=== PATIENT | male | born 1985 | race African-American/Black ===

== ENCOUNTER 2022-03-19 23:01 | Emergency (ER) | payer BC ==
[~2022-03-19] VITALS: Ht 185.4 cm; Wt 113.4 kg
--- NOTE | 2022-03-19 23:29 | NUR ---
Dr. hill at bedside for mse pt came to er c/o hiccups.
[2022-03-19] MEDS ORDERED: LIDOCAINE VISCUS 2% 15 ML UDC MM ONE (23:30)
[2022-03-19] MEDS ORDERED: MAG HYDROX/AL HYDROX/SIMETH 30 ML LIQUID UDC PO ONE (23:30)
[2022-03-19] MEDS ORDERED: MAG HYDROX/AL HYDROX/SIMETH 30 ML LIQUID UDC ONE (23:42)
[2022-03-19] MEDS ORDERED: LIDOCAINE VISCUS 2% 15 ML UDC ONE (23:42)
[2022-03-19 23:48] LABS: HEMATOCRIT 39.6 % (36.7-47.1); MEAN CORPUSCULAR VOLUME 71.7 fL (73.0-96.2); PLATELET COUNT (AUTO) 422 K/uL (152-348)
--- NOTE | 2022-03-20 | NUR ---
pt taken to cat scan.
[2022-03-20 00:14] LABS: CARBON DIOXIDE 30 mmol/L (21-32); CHLORIDE 100 mmol/L (98-107); CREATININE 1.4 mg/dL (0.6-1.3); GLUCOSE 139 mg/dL (74-106); POTASSIUM 3.7 mmol/L (3.5-5.1); UREA NITROGEN, BLOOD 7 mg/dL (7-18)
[2022-03-20 00:27] LABS: ALANINE AMINOTRANSFERASE 28 U/L (16-63); ALKALINE PHOSPHATASE 37 U/L (50-136); ASPARTATE AMINOTRANSFERASE 28 U/L (15-37); BILIRUBIN,DIRECT 0.2 mg/dL (0.0-0.2); BILIRUBIN,TOTAL 1.2 mg/dL (0.2-1.0)
[2022-03-20 00:38] LABS: LIPASE 103 U/L (73-393)
--- NOTE | 2022-03-20 01:36 | NUR ---
dr. hill at bedside speaking with the pt.
[2022-03-20] MEDS ORDERED: OMEP20TA5 PO (02:06)
--- NOTE | 2022-03-20 02:14 | NUR ---
Patient discharged to home in stable condition. Written and verbal after care instructions given. Patient verbalizes understanding of instructions. Stressed follow up or return to ER for worsening s/s.
[2022-03-20 02:16] VITALS: BP 140/72
== END 2022-03-20 02:17 | disposition home or self-care (01) ==
LOC: ER 23:08
DX: R10.13 Epigastric pain (principal); R03.0 Elevated blood-pressure reading, without diagnosis of hypertension
CPT/HCPCS: 36415; 71045; 83690; 84484; 85025; 93005; A4663